=== PATIENT | female | born 1965 | race African-American/Black ===

== ENCOUNTER 2017-07-13 19:32 | Emergency (ER) | payer MEDICAID, MEDICARE ==
[~2017-07-13] VITALS: Ht 165.1 cm; Wt 240.1 kg
[~2017-07-13 19:32] MED LIST: ACET-784 PO; ARIP30TA11 PO; ASPI-556 PO; AZIT250T9 IV; CARV3.1262 PO; CEFX1I IV; DOCU250C91 PO; FLUT16H NASAL; GUAI200T5 PO; HYDR-309 PO; HYDR100T28 PO; IPRA3AMP4 NEB; LEVO100T13 PO; MONT10TA21 PO; PANT40TA PO; POLY238P2 PO; RISP4TAB63 PO; SERT100T12 PO; SIMV10TA6 PO; TIOT185 IH; VERA180T8 PO
[2017-07-13] MEDS ORDERED: PRED20 PO (20:02)
[2017-07-13] MEDS ORDERED: NYST30CR9 TP (20:02)
[2017-07-13] MEDS ORDERED: ZOLP5 PO (20:02)
[2017-07-13] MEDS ORDERED: HEPA500041 SQ (20:02)
[2017-07-13] MEDS ORDERED: FURO40 PO (20:02)
[2017-07-14 07:26] VITALS: BP 150/83
== END 2017-07-14 07:59 | disposition home or self-care (01) ==
LOC: EMS 19:34
DX: M54.5 Low back pain (principal); J45.909 Unspecified asthma, uncomplicated; J44.9 Chronic obstructive pulmonary disease, unspecified; I10 Essential (primary) hypertension; F17.210 Nicotine dependence, cigarettes, uncomplicated; Z79.82 Long term (current) use of aspirin; Z88.5 Allergy status to narcotic agent
CPT/HCPCS: 72100; 99284